=== PATIENT | male | born 1980 | race Hispanic/Latino ===

== ENCOUNTER 2016-07-13 09:15 | Emergency (ER) | payer MEDICAID, OTHER ==
[2016-07-13 09:26] VITALS: BP 133/81; PULSE 72; RESP 19; TEMP 98; O2SAT 98
--- NOTE | 2016-07-13 10:02 | ED PDOC ---
Upper Extremity Pain/Injury Time Seen by Provider: 07/13/16 09:50 Chief Complaint (Nursing): Upper Extremity Problem/Injury Chief Complaint (Provider): left hand pain History Per: Patient History/Exam Limitations: no limitations Current Symptoms Are (Timing): Still Present Additional Complaint(s): 36yo male comes to the ED complaining of left hand pain for several weeks after changing 32 electrical sockets. States pain is now radiating to the left elbow. Pain has worsened since he shoveled in a snow storm. Reports there is a clicking sound when moving the thumb. No falls or other trauma. Has not taken any medications. Past Medical History Reviewed: Historical Data, Nursing Documentation, Vital Signs Vital Signs: Last Vital Signs Temp 98 F 07/13/16 09:24 Pulse 72 07/13/16 09:24 Resp 19 07/13/16 09:24 BP 133/81 07/13/16 09:24 Pulse Ox 98 07/13/16 09:24 - Medical History PMH: Kidney Stones, Migraine, Chronic Kidney Disease Denies: Hyperlipidemia (denies) - Surgical History Surgical History: No Surg Hx - Family History Family History: States: Unknown Family Hx - Living Arrangements Living Arrangements: With Family - Social History Drugs: Denies - Home Medications Home Medications: Ambulatory Orders Medication Instructions Recorded Ciprofloxacin Hydrochloride [Cipro] 500 mg PO BID #10 tab 07/10/14 Oxycodone HCl/Acetaminophen 1 tab PO Q4 #10 tab 07/10/14 [Percocet 325 mg-5 mg] Tamsulosin [Flomax] 0.4 mg PO DAILY #10 cap 07/10/14 DiphenhydrAMINE [Benadryl] 50 mg PO Q4H PRN #30 cap 04/26/15 Methylprednisolone [Medrol Dose 4 mg PO DAILY #21 mg 04/26/15 Pack (21 tabs)] Naproxen 500 mg PO BID #20 tab 07/13/16 - Allergies Allergies/Adverse Reactions: Allergies Allergy/AdvReac Type Severity Reaction Status Date / Time aluminum Allergy RASH Verified 12/09/15 09:43 latex Allergy RASH Verified 12/09/15 09:43 Review of Systems ROS Statement: Except As Marked, All Systems Reviewed And Found Negative Musculoskeletal: Positive for: Hand Pain, Other (elbow pain) Physical Exam - Reviewed Nursing Documentation Reviewed: Yes Vital Signs Reviewed: Yes - Physical Exam Appears: Positive for: Well, Non-toxic, No Acute Distress Head Exam: Positive for: ATRAUMATIC, NORMAL INSPECTION, NORMOCEPHALIC Skin: Positive for: Warm, Dry Eye Exam: Positive for: EOMI, PERRL Extremity: Positive for: Normal ROM, Other (External exam is normal. No deformity, swelling, tenderness. ) Neurologic/Psych: Positive for: Alert, Oriented - ECG O2 Sat by Pulse Oximetry: 98 (RA) Pulse Ox Interpretation: Normal Medical Decision Making Medical Decision Makin will obtain XR to rule out fracture. Differential includes stenosing tenosynovitis vs quervain synovitis. Recommend follow up with ortho or hand specialist. use NSAIDs daily. Return if symptoms worsen. Consider physical therapy. 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 Follow up with hand specialist within 1 week. Carry wrist brace at all times. Prescriptions: Naproxen 500 mg PO BID #20 tab Instructions: Tenosynovitis (ED) Additional Comments - Additional Comments Additional Comments: Scribe Attestation: Documented by George Logan acting as a scribe for Danae Alejo MD. Provider Scribe Attestation: All medical record entries made by the Scribe were at my direction and personally dictated by me. I have reviewed the chart and agree that the record accurately reflects my personal performance of the history, physical exam, medical decision making, and the department course for this patient. I have also personally directed, reviewed, and agree with the discharge instructions and disposition.
--- NOTE | 2016-07-13 10:40 | RAD ---
PROCEDURE: Left Thumb radiographs. HISTORY: left thumb pain repetitive injury COMPARISON: None available TECHNIQUE: AP radiograph of the left hand, as well as spot oblique and lateral images of thumb were obtained. FINDINGS: LEFT THUMB: Unremarkable left 1st digit without acute displaced fracture identified. Remainder of the left hand (as seen on the AP view) grossly unremarkable. JOINTS: No dislocation. SOFT TISSUES: Unremarkable. No evidence of radiopaque foreign body. OTHER FINDINGS: None. IMPRESSION: No acute displaced fracture identified.
== END 2016-07-13 11:13 | disposition home or self-care (01) ==
LOC: H.ER 09:15
DX: M79.645 Pain in left finger(s) (principal); N18.9 Chronic kidney disease, unspecified